=== PATIENT | male | born 1970 ===

== ENCOUNTER 2017-01-26 15:32 | Emergency (ER) | payer MEDICARE ==
--- NOTE | 2017-01-26 20:51 | Emergency Department Report ---
ED ENT HPI - General Chief complaint: Dental/Oral Stated complaint: FACIAL SWELLING Time Seen by Provider: 01/26/17 20:37 Source: patient, family Mode of arrival: Ambulatory Limitations: No Limitations - History of Present Illness Initial comments: Patient here reported that he has a toothache and dental abscess. He said he woke up today with facial swelling on the left side. Denies any fever or chills. Patient said he had tooth is hurting on and off for a while. 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 Describes pain as aching and patient said that he takes oxycodone for back pain so he is using that first toothache. Pain is minimal. Denies any sore throat, drooling or difficulty swallowing. MD complaint: tooth pain -: This morning Location: tooth # (upper left back tooth) Severity: mild Quality: aching Consistency: constant Improves with: other medication Worsens with: eating Context- Dental: history of dental caries, poor dental care Associated Symptoms: gum swelling, toothache. denies: fever, cough, pain with swallowing, sore throat, tinnitus, hearing loss, discharge from ear, rhinorrhea - Related Data Previous Rx's Medication Instructions Recorded Last Taken Type Benzonatate [Tessalon Perles] 100 mg PO Q8HR PRN #20 capsule 02/10/16 Unknown Rx Ibuprofen [Motrin] 800 mg PO Q8HR PRN #15 tablet 02/10/16 Unknown Rx Phenylephrine/Dm/Acetaminop/GG 20 ml PO Q4HR #180 ml 02/10/16 Unknown Rx [Mucinex Fiet-Ylq-Oplpocrcjf Lq] Clindamycin [Clindamycin CAP] 300 mg PO Q8H #30 cap 01/26/17 Unknown Rx Ibuprofen [Motrin] 600 mg PO Q8H PRN #30 tablet 01/26/17 Unknown Rx Allergies Allergy/AdvReac Type Severity Reaction Status Date / Time codeine AdvReac Unknown Verified 02/09/16 20:43 ED Dental HPI - General Chief complaint: Dental/Oral Stated complaint: FACIAL SWELLING Time Seen by Provider: 01/26/17 20:37 Source: patient Mode of arrival: Ambulatory Limitations: No Limitations - Related Data Previous Rx's Medication Instructions Recorded Last Taken Type Benzonatate [Tessalon Perles] 100 mg PO Q8HR PRN #20 capsule 02/10/16 Unknown Rx Ibuprofen [Motrin] 800 mg PO Q8HR PRN #15 tablet 02/10/16 Unknown Rx Phenylephrine/Dm/Acetaminop/GG 20 ml PO Q4HR #180 ml 02/10/16 Unknown Rx [Mucinex Dapg-Vmt-Lrflaauqtq Lq] Clindamycin [Clindamycin CAP] 300 mg PO Q8H #30 cap 01/26/17 Unknown Rx Ibuprofen [Motrin] 600 mg PO Q8H PRN #30 tablet 01/26/17 Unknown Rx Allergies Allergy/AdvReac Type Severity Reaction Status Date / Time codeine AdvReac Unknown Verified 02/09/16 20:43 ED Review of Systems ROS: Stated complaint: FACIAL SWELLING Other details as noted in HPI Comment: All other systems reviewed and negative Constitutional: denies: chills, fever ENT: dental pain, other (facial swelling). denies: ear pain, throat pain, hearing loss, epistaxis Respiratory: no symptoms reported Cardiovascular: denies: chest pain, palpitations, edema, syncope Gastrointestinal: denies: nausea, vomiting Musculoskeletal: denies: arthralgia Neurological: denies: headache ED Past Medical Hx - Past Medical History Previous Medical History?: Yes Additional medical history: Chronic back pain - Surgical History Past Surgical History?: Yes Additional Surgical History: 'rods in back' - Family History Family history: no significant - Social History Smoking Status: Current Every Day Smoker Substance Use Type: None - Medications Home Medications: Home Medications Medication Instructions Recorded Confirmed Last Taken Type Benzonatate [Tessalon Perles] 100 mg PO Q8HR PRN #20 capsule 02/10/16 Unknown Rx Ibuprofen [Motrin] 800 mg PO Q8HR PRN #15 tablet 02/10/16 Unknown Rx Phenylephrine/Dm/Acetaminop/GG 20 ml PO Q4HR #180 ml 02/10/16 Unknown Rx [Mucinex Ozwc-Bmc-Hvdbeartdu Lq] Clindamycin [Clindamycin CAP] 300 mg PO Q8H #30 cap 01/26/17 Unknown Rx Ibuprofen [Motrin] 600 mg PO Q8H PRN #30 tablet 01/26/17 Unknown Rx ED Physical Exam - General Limitations: No Limitations General appearance: alert, in no apparent distress - Head Head exam: Present: atraumatic, normocephalic, normal inspection - Eye Eye exam: Present: normal appearance, PERRL, EOMI. Absent: periorbital swelling , periorbital tenderness Pupils: Present: normal accommodation - ENT ENT exam: Present: normal orophraynx, mucous membranes moist, TM's normal bilaterally, normal external ear exam, other (patient with positive facial swelling left face. No induration or erythema. Tender to palpate.) - Expanded ENT Exam Expanded Ear exam: Present: normal external inspection Mouth exam: Present: normal external inspection, tongue normal. Absent: drooling, trismus, muffled voice, tongue elevation, laceration Teeth exam: Present: dental caries, dental tenderness # (tooth #14, 15 and 16. Cellulitic and tender to palpate.), gingival enlargement Throat exam: Positive: normal inspection. Negative: tonsillar erythema, tonsillomegaly, tonsillar exudate, R peritonsillar mass, L peritonsillar mass generalized Ear exam: Present: normal external inspection - Neck Neck exam: Present: normal inspection, full ROM. Absent: tenderness, meningismus, lymphadenopathy - Respiratory Respiratory exam: Present: normal lung sounds bilaterally. Absent: respiratory distress, chest wall tenderness - Cardiovascular Cardiovascular Exam: Present: regular rate, normal rhythm, normal heart sounds - Extremities Exam Extremities exam: Present: normal inspection, full ROM, normal capillary refill. Absent: tenderness, pedal edema, joint swelling, calf tenderness - Neurological Exam Neurological exam: Present: alert, oriented X3, normal gait, reflexes normal. Absent: motor sensory deficit - Psychiatric Psychiatric exam: Present: normal affect, normal mood - Skin Skin exam: Present: warm, dry, intact, normal color. Absent: rash ED Course Vital Signs 01/26/17 01/26/17 17:00 20:58 Temperature 99.0 F Pulse Rate 100 H Respiratory 20 18 Rate Blood Pressure 143/80 O2 Sat by Pulse 98 Oximetry - Reevaluation(s) Reevaluation #1: 01/26/17 22:12 Patient given Toradol 60 mg IM and clindamycin 600 mg IM and emergency room without any adverse reaction. ED Medical Decision Making - Medical Decision Making ED course: Here for dental abscess that started this morning. Suddenly physical exam patient with very poor oral care with gingival enlargement, multiple dental caries and oral cellulitis with facial swelling. Patient has taken oxycodone at home for chronic back pain so he said this helped his toothache. He is given Toradol 60 mg IM and clindamycin 600 mg IM and emergency room. Discussed with patient that he needs to call dentist that is in his discharge instruction paperwork in the morning to schedule appointment. He also Said that he is to call his insurance company and find a dentist in the area. Patient was understanding of discharge instruction and diagnosis. He was discharged home with his with prescription for clindamycin and he said he'll take his own pain medication at home. I'll also add Motrin to his prescription. Critical care attestation.: If time is entered above; I have spent that time in minutes in the direct care of this critically ill patient, excluding procedure time. ED Disposition Clinical Impression: Oral cellulitis, Tooth ache, Dental caries, Gingivitis, Swelling of left side of face Disposition: DISCHARGED TO HOME OR SELFCARE Is pt being admited?: No Does the pt Need Aspirin: No Condition: Stable Instructions: Gingivitis (ED), Toothache (ED), Dental Caries (ED), Cellulitis ( ED) Additional Instructions: Please follow up with dentist that he will refer to. If you have your own dentist then you can follow up with your own dentist biometry call tomorrow to schedule appointment. Please take antibiotic as prescribed. Taking her own oxycodone please do not drive or operate heavy machinery as this can cause drowsiness. Please floss and use mouthwash 3 times a day Prescriptions: Clindamycin [Clindamycin CAP] 300 mg PO Q8H #30 cap Ibuprofen [Motrin] 600 mg PO Q8H PRN #30 tablet PRN Reason: Pain Referrals: [facility] [Outside] - 2-3 Days [facility] [Outside] - 2-3 Days Forms: Work/School Release Form(ED), Accompanied Note
[2017-01-26] MEDS ORDERED: TORADOL ONE (20:52)
[2017-01-26] MEDS ORDERED: TORADOL IM ONE (20:54)
[2017-01-26] MEDS ORDERED: CLEOCIN IM ONE (20:54)
[2017-01-26 22:28] VITALS: BP 140/92
== END 2017-01-26 22:28 | disposition home or self-care (01) ==
LOC: ED 15:32
DX: K12.2 Cellulitis and abscess of mouth (principal); K02.9 Dental caries, unspecified; K05.10 Chronic gingivitis, plaque induced; R22.0 Localized swelling, mass and lump, head; G89.29 Other chronic pain; F17.200 Nicotine dependence, unspecified, uncomplicated; Z88.5 Allergy status to narcotic agent
CPT/HCPCS: 96372; 99282; J1885